=== PATIENT | female | born 1965 | race Two or more races ===

== ENCOUNTER 2018-07-26 18:54 | Emergency (ER) | payer OTHER ==
[~2018-07-26] VITALS: Ht 157.5 cm; Wt 85.7 kg
[2018-07-26] MEDS ORDERED: DIOVAN HCT 3201 EAC1 (19:08)
[2018-07-26] MEDS ORDERED: NORVASC5 MG (19:09)
== END 2018-07-26 20:28 | disposition home or self-care (01) ==
LOC: ER 18:54
DX: M62.830 Muscle spasm of back (principal); M54.5 Low back pain

== ENCOUNTER 2019-09-21 20:47 | Emergency (ER) | payer OTHER ==
[~2019-09-21] VITALS: Ht 157.5 cm; Wt 81.2 kg
[~2019-09-21 20:47] MED LIST: DIOVAN HCT 3201 EAC1; NORVASC5 MG
[2019-09-21] MEDS ORDERED: CYMBALTA30 MG (21:00)
== END 2019-09-23 09:32 | disposition home or self-care (01) ==
LOC: ER 20:47
DX: K52.89 Other specified noninfective gastroenteritis and colitis (principal); E86.0 Dehydration; E87.6 Hypokalemia; R11.2 Nausea with vomiting, unspecified; R10.816 Epigastric abdominal tenderness